=== PATIENT | female | born 2000 | race Two or more races ===

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

== ENCOUNTER 2018-01-03 12:39 | Emergency (ER) | payer SELFPAY ==
[~2018-01-03] VITALS: Ht 157.5 cm; Wt 77.1 kg
[~2018-01-03 12:39] MED LIST changes: +METRONIDAZOLE500 MG ORAL
--- NOTE | 2018-01-03 13:15 | Emergency Room Report ---
History of Present Illness General Chief Complaint: Sore Throat Source: Patient Present Illness HPI Patient is a 17-year-old female with no significant past medical history GERD complaining of 2 days of sore throats, fevers/chills. The pain 10 out of 10, difficulty swallowing, denies SOB, denies cough, denies rhinorrhea, denies wheezing. Vision has taken ibuprofen with some improvement for pain. No sick contacts Allergies: Coded Allergies: No Known Allergies (Unverified , 07/12/15) Patient History Past Medical History: see triage record Past Surgical History: none Pertinent Family History: none Last Menstrual Period: 10/31/17 Now: No Immunizations: UTD Reviewed Nursing Documentation: PMH: Agreed; PSxH: Agreed Nursing Documentation-PMH Past Medical History: No Stated History Review of Systems All Other Systems: negative except mentioned in HPI Physical Exam Vital Signs Date Time Temp Pulse Resp B/P (MAP) Pulse Ox O2 Delivery O2 Flow Rate FiO2 01/03/18 12:56 98.4 87 16 131/75 99 Room Air 98.4 Sp02 EP Interpretation: reviewed, normal General Appearance: normal inspection, well appearing, no apparent distress Head: normocephalic, atraumatic Eyes: bilateral eye normal inspection, bilateral eye PERRL ENT: hearing grossly normal, uvula midline, tonsillar swelling - bilateral 2+, tonsillar exudate - bilateral exudate Neck: supple, other - anterior cervical lymphadenopathy Respiratory: normal inspection, chest non-tender, lungs clear, normal breath sounds, no rhonchi, no respiratory distress, no retraction, no accessory muscle use Cardiovascular #1: normal inspection, normal peripheral pulses, regular rate, rhythm, no edema, no murmur Gastrointestinal: normal inspection, non tender, soft Rectal: deferred Genitourinary: deferred Musculoskeletal: normal inspection, back normal Neurologic: normal inspection, alert, oriented x3 Psychiatric: normal inspection, judgement/insight normal Lymphatic: other, adenopathy - Cervical lymphadenopathy anterior Medical Decision Making PA Attestation fall diagnosis, treatment plans, orders were reviewed and discussed with my supervising physician Dr. Ngo Diagnostic Impression: Primary Impression: Strep pharyngitis Additional Impression: Sore throat ER Course Patient is a 17-year-old female with no significant past medical history GERD complaining of 2 days of sore throats, fevers/chills. The pain 10 out of 10, difficulty swallowing, denies SOB, denies cough, denies rhinorrhea, denies wheezing. Vision has taken ibuprofen with some improvement for pain. No sick contacts Ddx considered but are not limited to strep pharyngitis, URI Vital signs: are WNL, pt. is afebrile H&PE are most consistent with strep pharyngitis ORDERS: Augmentin 875/125 mg, Motrin 600 mg ED INTERVENTIONS: None required at this time. DISCHARGE: At this time pt. is stable for d/c to home. Will provide printed patient care instructions, and any necessary prescriptions. Care plan and follow up instructions have been discussed with the patient prior to discharge. avoid spicy, acidic, greasy food. Patient has direct Last Vital Signs Date Time Temp Pulse Resp B/P (MAP) Pulse Ox O2 Delivery O2 Flow Rate FiO2 01/03/18 12:56 98.4 87 16 131/75 99 Room Air 98.4 Disposition: HOME, SELF-CARE Condition: Stable Scripts Ibuprofen* (MOTRIN*) 400 Mg Tablet 400 MG ORAL FOUR TIMES A DAY, #30 TAB 0 Refills Prov: Sabrina Rondon P.AMari 01/03/18 Amoxicillin/Potassium Clav 875-125* (AUGMENTIN 875-125 TABLET*) 1 Each Tablet 1 TAB ORAL TWICE A DAY for 7 Days, #14 TAB Prov: Sabrina Rondon.AMari 01/03/18 Patient Instructions: Sore Throat, Strep Throat Additional Instructions: take meds as directed. avoid spicy/acidic food. follow up with pcp. ED precautions Sabrina Rondon Jan 03, 2018 13:15
[2018-01-03] MEDS ORDERED: IBUPROFEN400 MG ORAL (13:16)
[2018-01-03] MEDS ORDERED: AUGMENTIN 875-1 EAC1 ORAL (13:16)
[2018-01-03 13:20] VITALS: BP 131/75
== END 2018-01-03 13:28 | disposition home or self-care (01) ==
LOC: EMR 13:20
DX: J02.0 Streptococcal pharyngitis (principal); K21.9 Gastro-esophageal reflux disease without esophagitis
CPT/HCPCS: 99284

== ENCOUNTER 2018-11-08 13:27 | Emergency (ER) | payer SELFPAY ==
[~2018-11-08] VITALS: Ht 157.5 cm; Wt 79.8 kg
[~2018-11-08 13:27] MED LIST changes: +AUGMENTIN 875-1 EAC1 ORAL; +IBUPROFEN400 MG ORAL
[2018-11-08] MEDS ORDERED: NKM (13:37)
[2018-11-08 13:52] VITALS: BP 128/77
--- NOTE | 2018-11-08 13:53 | NUR ---
ED Nurse Note:pt. came with rash on her thighs chest and knees, A/Ox4 ambulatory no fever reported
--- NOTE | 2018-11-08 14:25 | Emergency Room Report ---
History of Present Illness General Chief Complaint: Skin Rash/Abscess Source: Patient Present Illness HPI 18 -year-old female presents to the emergency department complaining of itchy rash with acute onset 4 days ago primarily in the bilateral inner thighs she also has some across the anterior top of the chest and along the posterior elbows. Denies pain. reports recent URI last week. Pt. denies fevers, chills or swollen tender lymph nodes. Denies lesions/rashes elsewhere on the body. Denies new medications or body washes or creams. Denies swelling of the lips, tongue , throat or airway. Denies wheezing, or shortness of breath. Denies recent travel , or ill contacts. denies blisters, oral lesions, or sloughing of the skin. Allergies: Coded Allergies: No Known Allergies (Unverified , 11/08/18) Patient History Past Medical History: see triage record Past Surgical History: none Pertinent Family History: none Last Menstrual Period: 10/06/18 Now: No Reviewed Nursing Documentation: PMH: Agreed; PSxH: Agreed Nursing Documentation-PMH Past Medical History: No Stated History Review of Systems All Other Systems: negative except mentioned in HPI Physical Exam Vital Signs Date Time Temp Pulse Resp B/P (MAP) Pulse Ox O2 Delivery O2 Flow Rate FiO2 11/08/18 13:32 98.8 73 16 98 Room Air 11/08/18 13:52 128/77 Sp02 EP Interpretation: reviewed, normal General Appearance: no apparent distress, alert, GCS 15, non-toxic Head: normocephalic, atraumatic Eyes: bilateral eye normal inspection, bilateral eye PERRL ENT: hearing grossly normal, normal voice, other - no swelling of the lips or tongue, no stridor Neck: full range of motion Respiratory: lungs clear, normal breath sounds, no respiratory distress, no accessory muscle use, no wheezing, speaking full sentences Cardiovascular #1: regular rate, rhythm Gastrointestinal: non tender, soft, other - no rash on abdomen Genitourinary: normal inspection Musculoskeletal: gait/station normal, normal range of motion, non-tender Neurologic: alert, oriented x3, responsive, motor strength/tone normal, sensory intact, normal gait, speech normal, grossly normal Psychiatric: judgement/insight normal Skin: normal color, warm/dry, well hydrated, rash - urticarial type rash on the inner thighs bilateraly, the elbows, and forearms and the top of the chest anteriorly, no rash on abdomen, back , LE, hands, face or neck. no blisters or vessicles. Lymphatic: no adenopathy Medical Decision Making PA Attestation Dr. Dominique is my supervising Physician whom patient management has been discussed with. Diagnostic Impression: Primary Impression: Rash and other nonspecific skin eruption ER Course 18 -year-old female presents to the emergency department complaining of itchy rash with acute onset 4 days ago primarily in the bilateral inner thighs she also has some across the anterior top of the chest and along the posterior elbows. Denies pain. reports recent URI last week. Pt. denies fevers, chills or swollen tender lymph nodes. Denies lesions/rashes elsewhere on the body. Denies new medications or body washes or creams. Denies swelling of the lips, tongue , throat or airway. Denies wheezing, or shortness of breath. Denies recent travel , or ill contacts. denies blisters, oral lesions, or sloughing of the skin. Ddx considered but are not limited to cellulitis, scabies, shingles, varicella, dermatitis, urticaria, eczema, tinea, viral exanthem, SJS Vital signs: are WNL, pt. is afebrile H&PE are most consistent with allergic contact dermatitis type rash , no evidence of secondary infection, Impending airway compromise or acute anaphylaxis. ORDERS: none required at this time, the diagnosis is clinical ED INTERVENTIONS: None required at this time. DISCHARGE: At this time pt. is stable for d/c to home. Will provide printed patient care instructions, and any necessary prescriptions. Care plan and follow up instructions have been discussed with the patient prior to discharge. Last Vital Signs Date Time Temp Pulse Resp B/P (MAP) Pulse Ox O2 Delivery O2 Flow Rate FiO2 11/08/18 13:52 98.8 65 16 128/77 98 Room Air Disposition: HOME, SELF-CARE Condition: Stable Departure Forms: Return to Work Return to Work Date: November 11, 2018 Work Restrictions: None Other Restrictions: May return Sooner if Symptoms have resolved. Return to Full Activity: November 11, 2018 Patient Instructions: Rash Additional Instructions: Take medications as directed. Follow up with a Primary Care Provider in 3-5 days, even if your symptoms have resolved. --Please review list of primary care clinics, if you do not already have a primary care provider Return sooner to ED if new symptoms occur, or current symptoms become worse. Do not drink alcohol, drive, or operate heavy machinery while taking hydroxyzine as this may cause drowsiness. - Please note that this Emergency Department Report was dictated using [employer] superintendent technology software, occasionally this can lead to erroneous entry secondary to interpretation by the dictation equipment. Myesha Correa November 08, 2018 14:24
[2018-11-08] MEDS ORDERED: VISTARIL50 MG ORAL (14:26)
[2018-11-08] MEDS ORDERED: ANTI-ITCH28 G1 TP (14:26)
[2018-11-08 14:48] VITALS: BP 128/77
--- NOTE | 2018-11-08 14:49 | NUR ---
ER DISCHARGE NOTE: Patient is cleared to be discharged per ERMD, pt is aox4, on room air, with stable vital signs. pt was given dc and prescription instructions, pt was able to verbalize understanding, pt is able to ambulate with steady gait. pt took all belongings.
== END 2018-11-08 14:30 | disposition home or self-care (01) ==
LOC: EMR 14:18
DX: R21 Rash and other nonspecific skin eruption (principal)
CPT/HCPCS: 99282

== ENCOUNTER 2019-01-28 22:45 | Emergency (ER) | payer SELFPAY ==
[~2019-01-28] VITALS: Ht 157.5 cm; Wt 79.8 kg
[~2019-01-28 22:45] MED LIST changes: +ANTI-ITCH28 G1 TP; +NKM; +VISTARIL50 MG ORAL
[2019-01-28] MEDS ORDERED: NKM (22:51)
--- NOTE | 2019-01-28 23:00 | NUR ---
ED Nurse Note: PT WALKED IN C/O HEADACHE X 3 DAYS AND PRESSURE LIKE PAIN ON NECK, PT DENIES ANY RECENT INJURIES, DENIES N/V AT THIS TIME, DENIES VISION CHANGES, VSS, WILL CONT MONITOR. AMBULATORY W/ STEADY GAIT.
[2019-01-28] MEDS ORDERED: Metoclopramide 10mg/2ml Inj IVP ONE (23:15)
[2019-01-28] MEDS ORDERED: Ketorolac 30mg Inj IV ONE (23:15)
--- NOTE | 2019-01-28 23:15 | Emergency Room Report ---
History of Present Illness General Chief Complaint: Headache Source: Patient Present Illness HPI HPI: 1-year-old female with no second medical history is benign for evaluation of headache. Is been present for several days. Describes it as a right-sided intermittent throbbing and aching headache particularly at the base of the skull. She states she has had tension headaches in the past and sometimes has headaches around her period which she started 3 days ago. She denies any vision changes, blurred vision, vertiginous symptoms, photophobia, nausea, vomiting, fevers, neck pain or stiffness or rash. Currently, her headache is 4/ 10. She states it is been constant for several days however it undulates in intensity. She tried ibuprofen one time however it did not work several days ago and has not tried any other medication since. She states she is staying well-hydrated. PMH: Denies PSH: Denies Allergies: Denies Social Hx: Social alcohol use, denies tobacco or drug use Allergies: Coded Allergies: No Known Allergies (Unverified , 11/08/18) Patient History Last Menstrual Period: 01/23/19 Now: No : 0 Para: 0 Nursing Documentation-PMH Past Medical History: No Stated History Review of Systems All Other Systems: negative except mentioned in HPI Physical Exam Vital Signs Date Time Temp Pulse Resp B/P (MAP) Pulse Ox O2 Delivery O2 Flow Rate FiO2 01/28/19 22:48 98.2 77 18 146/86 (106) 96 Room Air General: Awake and alert, no acute distress HEENT: NC/AT. EOMI. PERRLA. No nystagmus. Moist mucous membranes. Cardiovascular: RRR. S1 and S2 normal. No murmur appreciated Resp: Normal work of breathing. No cough, wheezing or crackles appreciated Abdomen: Abdomen is soft, nondistended. Nontender Skin: Intact. No abrasions, laceration or rash over the exposed skin MSK: Normal tone and bulk. Moving all extremities. No obvious deformity. Neuro: Awake and alert. Mentating appropriately. Visual [place] are full. No nystagmus. PERRLA. She will expressions are symmetrical. Strength is full in the upper and lower extremities. Sensation is intact in the upper extremities over all dermatomes. Ambulating with a steady gait in the emergency department. No ataxia. Back/Spine: Mild tenderness palpation over the base of the skull particularly over the trapezius on the right side. No midline tenderness in the cervical, thoracic or lumbosacral spine. Medical Decision Making Diagnostic Impression: Primary Impression: Headache ER Course 18-year-old female presents for evaluation of several days headache without severe features. This may be tension headache, generalized headache, possible migraine. May be related to menses. I have very little suspicion for meningitis/other infectious symptoms or for a mass/bleed. We will treat symptomatically with IV fluids, Reglan, Toradol and reevaluate. Neurologic exam is reassuring. Reevaluation Time: 00:01 Last Vital Signs Date Time Temp Pulse Resp B/P (MAP) Pulse Ox O2 Delivery O2 Flow Rate FiO2 01/28/19 22:48 98.2 77 18 146/86 (106) 96 Room Air Status: improved Reevaluation Impression Declined IV fluids stating that the IV was painful. Headache is now resolved. We discussed red flag symptoms and reasons to return to the emergency department patient and family who are now present at bedside. She is electing to be discharged home at this time and feels well. We will give the name of some primary care clinics in the area for her to follow-up. Discussed reasons to return to the emergency department. She understands and agrees with this treatment plan will be discharged home. Please note that this report is being documented using [employer] technology. This can lead to erroneous entry secondary to incorrect interpretation by the dictating instrument. Disposition: HOME, SELF-CARE Condition: Improved Jeff Crane MD Jan 28, 2019 23:15
[2019-01-28 23:42] VITALS: BP 135/75
--- NOTE | 2019-01-28 23:45 | NUR ---
ED Nurse Note: PT REFUSED IV ACCESS, ERMD NOTIFIED.
[2019-01-29 00:25] VITALS: BP 126/73
--- NOTE | 2019-01-29 00:26 | NUR ---
ED Nurse Note: PT CLEARED TO BE D/C PER ERMD, PT DISCHARGE AND AFTERCARE INSTRUCTION PROVIDED, PT ADVISED TO FOLLOW UP WITH PCP OR RETURN TO ED IF CHANGES IN CONDITION, EDUCATION DONE VIA DISCUSSION AND HANDOUT, PT VSS, AMBULATORY W/ STEADY GAIT, LEFT W/ ALL BELONGINGS.
== END 2019-01-29 00:25 | disposition home or self-care (01) ==
LOC: EMR 01-29 00:20
DX: R51 Headache (principal)
CPT/HCPCS: 96361; 96374; 96375; 99284; J1885; J2765

== ENCOUNTER 2019-02-01 17:06 | Emergency (ER) | payer SELFPAY ==
[~2019-02-01] VITALS: Ht 157.5 cm; Wt 79.8 kg
[2019-02-01 17:11] VITALS: BP 172/92
--- NOTE | 2019-02-01 17:20 | NUR ---
ED Nurse Note: Patient walked into ED c/o heart racing started around 1600 at work. patient is alert awake x4 ambulatory breathing unlabored and even, patient is interactive with her friend at bedside. HR 98 upon triage.
--- NOTE | 2019-02-01 17:37 | NUR ---
ED Nurse Note: UA sent to lab
[2019-02-01] MEDS ORDERED: LORazepam 0.5mg tab ORAL ONE (17:45)
[2019-02-01 17:53] LABS: APPEARANCE,URINE CLEAR; BILIRUBIN, URINE NEGATIVE (NEGATIVE); COLOR,URINE PALE YELLOW; GLUCOSE, URINE (UA) NEGATIVE (NEGATIVE); KETONES,URINE 2+ (NEGATIVE); LEUKOCYTE ESTERASE ,URINE 3+ (NEGATIVE); NITRITE,URINE NEGATIVE (NEGATIVE); PH,URINE 5 (4.5-8.0); PROTEIN,URINE NEGATIVE (NEGATIVE); UROBILINOGEN,URINE NORMAL MG/DL (0.0-1.0)
--- NOTE | 2019-02-01 18:49 | Emergency Room Report ---
History of Present Illness General Chief Complaint: Palpitations Source: Patient Present Illness HPI 18-year-old female presents to the emergency department complaining of feeling as though her heart was racing starting at 4 PM while at work. Patient reports having one prior episode in the past she denies chest pain, shortness of breath or difficulty breathing. Patient reports history of anxiety but states she is not medically managed and is not prescribed any specific medication for her symptoms she reports generalized anxiety. Patient denies increase in stress she denies nausea or vomiting. She does report that she has had a persistent headache with neck muscle spasm and upper back muscle spasm x3 days she states she gets tension headaches frequently patient denies sudden onset of her headache she denies trauma or fall. Denies fevers or chills. Patient denies photophobia. She denies suspicion of she does report urinary frequency with urgency she denies dysuria she reports some hematuria x2 days. She denies abdominal pain, tenderness or low back pain. Denies numbness tingling or loss of sensation or gross motor movements of the extremities, incontinence of bowel or bladder. Denies CP, Palpitations, LOC, AMS, dizziness, Changes in Vision, weakness or a sudden severe headache. Denies personal or familial cardiac hx. Denies significant changes in weight or hx of HTN. Pt. Denies smoking hx or recent travel. Allergies: Coded Allergies: No Known Allergies (Unverified , 11/08/18) Patient History Past Medical History: see triage record Past Surgical History: none Pertinent Family History: none Last Menstrual Period: 01/2019 Now: No Reviewed Nursing Documentation: PMH: Agreed; PSxH: Agreed Nursing Documentation-PMH Past Medical History: No History, Except For Review of Systems All Other Systems: negative except mentioned in HPI Physical Exam Vital Signs Date Time Temp Pulse Resp B/P (MAP) Pulse Ox O2 Delivery O2 Flow Rate FiO2 02/01/19 17:11 99.3 98 20 172/92 98 Room Air Sp02 EP Interpretation: reviewed, normal General Appearance: well appearing, no apparent distress, alert, GCS 15, non- toxic Head: normocephalic, atraumatic Eyes: bilateral eye normal inspection, bilateral eye PERRL ENT: hearing grossly normal, normal voice Neck: full range of motion, no meningismus, no bony tend, tender lateral - left > Right, muscular, no midline spinous process ttp. Respiratory: chest non-tender, lungs clear, normal breath sounds, no accessory muscle use, no wheezing, speaking full sentences Cardiovascular #1: regular rate, rhythm, no edema, normal capillary refill Gastrointestinal: normal bowel sounds, non tender, soft, non-distended Genitourinary: normal inspection, no CVA tenderness Musculoskeletal: gait/station normal, normal range of motion, non-tender Neurologic: alert, oriented x3, responsive, motor strength/tone normal, sensory intact, normal gait, speech normal, grossly normal Psychiatric: judgement/insight normal, no suicidal/homicidal ideation, no delusions, anxious - mildly anxious, pt. nervous to try medications. Skin: no rash Lymphatic: no adenopathy Medical Decision Making PA Attestation Dr. Pagan is my supervising Physician whom patient management has been discussed with. Diagnostic Impression: Primary Impression: Palpitations Additional Impressions: UTI (urinary tract infection) Qualified Codes: N30.01 - Acute cystitis with hematuria Neck muscle spasm ER Course 18-year-old female presents to the emergency department complaining of feeling as though her heart was racing starting at 4 PM while at work. Patient reports having one prior episode in the past she denies chest pain, shortness of breath or difficulty breathing. Patient reports history of anxiety but states she is not medically managed and is not prescribed any specific medication for her symptoms she reports generalized anxiety. Patient denies increase in stress she denies nausea or vomiting. She does report that she has had a persistent headache with neck muscle spasm and upper back muscle spasm x3 days she states she gets tension headaches frequently patient denies sudden onset of her headache she denies trauma or fall. Denies fevers or chills. Patient denies photophobia. She denies suspicion of she does report urinary frequency with urgency she denies dysuria she reports some hematuria x2 days. She denies abdominal pain, tenderness or low back pain. Denies numbness tingling or loss of sensation or gross motor movements of the extremities, incontinence of bowel or bladder. Denies CP, Palpitations, LOC, AMS, dizziness, Changes in Vision, weakness or a sudden severe headache. Denies personal or familial cardiac hx. Denies significant changes in weight or hx of HTN. Pt. Denies smoking hx or recent travel. Ddx considered but are not limited to [facility], arrhythmia, hypokalemia, anxiety reaction. Vital signs: are WNL, pt. is afebrile-- initial VS pt. had elevated BP reading. Repeat VS--- bp has normalized. H&PE are most consistent with anxiety reaction pt. currently non-toxic in appearance normal VS, NAD otherwise will r/o UTI/ and do EKG to r/o arrhythmia. ORDERS: - EK NSR, no acute ST changes. -UA: few bacteria, few rbc's and elevated leuks. will rx abx - Urine Hcg: negative ED INTERVENTIONS: -Ativan 0.5mg -- upon re-assessment pt. reports her symptoms have improved significantly. -I do not identify an emergent condition at this time. With current presentation , pt. is stable for close outpatient follow up and conservative treatment. D/ w pt. to return promptly to ED with worsening or new symptoms.- Pt. verbalizes' understanding and agreement with proposed treatment plan. DISCHARGE: At this time pt. is stable for d/c to home. Will provide printed patient care instructions, and any necessary prescriptions. Care plan and follow up instructions have been discussed with the patient prior to discharge. Labs Test 02/01/19 17:33 Urine Color Pale yellow Urine Appearance Clear Urine pH 5 (4.5-8.0) Urine Specific [place] 1.005 (1.005-1.035) Urine Protein Negative (NEGATIVE) Urine Glucose (UA) Negative (NEGATIVE) Urine Ketones 2+ (NEGATIVE) Urine Blood 2+ (NEGATIVE) Urine Nitrite Negative (NEGATIVE) Urine Bilirubin Negative (NEGATIVE) Urine Urobilinogen Normal MG/DL (0.0-1.0) Urine Leukocyte Esterase 3+ (NEGATIVE) Urine RBC 0-2 /HPF (0 - 2) Urine WBC 2-4 /HPF (0 - 2) Urine Squamous Epithelial Cells Few /LPF (NONE/OCC) Urine Bacteria Few /HPF (NONE) Urine HCG, Qualitative Negative (NEGATIVE) EKG Diagnostic Results EP Interpretation: Dr. Pagan Rate: normal - 77 Rhythm: NSR ST Segments: no acute changes ASA given to the pt in ED: No PA Scribe Text This Interpretation was scribed by ILAN Correa. Last Vital Signs Date Time Temp Pulse Resp B/P (MAP) Pulse Ox O2 Delivery O2 Flow Rate FiO2 02/01/19 17:11 99.3 98 20 172/92 (118) 98 Room Air Disposition: HOME, SELF-CARE Condition: Stable Scripts Lorazepam* (ATIVAN*) 1 Mg Tablet 1 MG ORAL BID for anxiety, #6 TAB Prov: Myesha Correa 02/01/19 Methocarbamol* (ROBAXIN-750*) 750 Mg Tablet 750 MG PO QID, #28 TAB 0 Refills Prov: Myesha Correa 02/01/19 Nitrofurantoin Monohyd/M-Cryst* (MACROBID 100 MG*) 100 Mg Capsule 100 MG ORAL EVERY 12 HOURS for 5 Days, #10 CAP Prov: Myesha Correa 02/01/19 Departure Forms: Return to Work Return to Work Date: Feb 03, 2019 Work Restrictions: None Other Restrictions: May return Sooner if Symptoms have resolved. Return to Full Activity: Feb 03, 2019 Patient Instructions: Muscle Cramps and Spasms, [id number] Additional Instructions: Take medications as directed. Follow up with a Primary Care Provider in 3-5 days, even if your symptoms have resolved. --Please review list of primary care clinics, if you do not already have a primary care provider Return sooner to ED if new symptoms occur, or current symptoms become worse. Do not drink alcohol, drive, or operate heavy machinery while taking [ ] as this may cause drowsiness. - Please note that this Emergency Department Report was dictated using [employer] technology software, occasionally this can lead to erroneous entry secondary to interpretation by the dictation equipment. Myesha Correa Feb 01, 2019 18:49
[2019-02-01 19:48] VITALS: BP 134/81
[2019-02-01] MEDS ORDERED: ATIVAN1 MG ORAL (20:02)
[2019-02-01] MEDS ORDERED: NITROFURANTOIN100 M2 ORAL (20:02)
[2019-02-01] MEDS ORDERED: ROBAXIN-750750 MG PO (20:02)
[2019-02-01 20:16] VITALS: BP 134/81
--- NOTE | 2019-02-01 20:20 | NUR ---
ER DISCHARGE NOTE: Patient is cleared to be discharged per YING HOPPER, pt is aox4, on room air, with stable vital signs. pt was given dc and prescription instructions, pt was able to verbalize understanding, pt id band removed without complications. pt is able to ambulate with steady gait. pt took all belongings.
== END 2019-02-01 20:20 | disposition home or self-care (01) ==
LOC: EMR 18:50
DX: R00.2 Palpitations (principal); N30.01 Acute cystitis with hematuria; M62.838 Other muscle spasm; F41.9 Anxiety disorder, unspecified
CPT/HCPCS: 81003; 81025; 93005; 99283

== ENCOUNTER 2019-03-03 19:57 | Emergency (ER) | payer SELFPAY ==
[~2019-03-03] VITALS: Ht 157.5 cm; Wt 79.8 kg
[~2019-03-03 19:57] MED LIST changes: +ATIVAN1 MG ORAL; +NITROFURANTOIN100 M2 ORAL; +ROBAXIN-750750 MG PO
--- NOTE | 2019-03-03 20:15 | NUR ---
ED Nurse Note: Recieved pt on gurney from home, awake, alert and oriented x 4, pt here with c/o burning during urination and sorethroat, pt denies any other dfiscomforts or complaints.
--- NOTE | 2019-03-03 20:24 | Emergency Room Report ---
History of Present Illness General Chief Complaint: Female Urogenital Problems Source: Patient Present Illness HPI 18-year-old female complaining of urinary urgency and dysuria x2 days. Denies fever, vomiting, blood in urine, abdominal pain, back pain. Also complaining of sore throat x2 weeks. Also complaining of yellow-green discharge from right eye x3 days. Denies vision change or eye pain. No relieving/ aggravating factors. Allergies: Coded Allergies: No Known Allergies (Unverified , 11/08/18) Patient History Past Medical History: none Past Surgical History: none Social History: Denies: smoking, alcohol use, drug use Last Menstrual Period: 02/17/19 Now: No Nursing Documentation-[facility] Past Medical History: No Stated History Physical Exam Vital Signs Date Time Temp Pulse Resp B/P (MAP) Pulse Ox O2 Delivery O2 Flow Rate FiO2 03/03/19 20:04 98.4 75 18 126/74 (91) 100 Room Air Sp02 EP Interpretation: reviewed, normal Eyes: right eye other - small amount of crusty yellow discharge on medial canthus; left eye normal inspection; bilateral eye PERRL ENT: hearing grossly normal, normal pharynx, no angioedema, normal voice Respiratory: chest non-tender, lungs clear, normal breath sounds, speaking full sentences Cardiovascular #1: regular rate, rhythm, no edema Gastrointestinal: normal bowel sounds, non tender, soft, non-distended, no guarding, no rebound Genitourinary: normal inspection, no CVA tenderness Skin: no rash, normal inspection Medical Decision Making PA Attestation This patient was seen under the direct supervision of Dr. Pagan who directed all aspects of care and diagnostic interpretation. ER Course ED course HPI: 18-year-old female complaining of urinary urgency and dysuria x2 days. Denies fever, vomiting, blood in urine, abdominal pain, back pain. Also complaining of sore throat x2 weeks. Also complaining of yellow-green discharge from right eye x3 days. Denies vision change or eye pain. No relieving/ aggravating factors. Physical exam of oropharynx shows no erythema and no exudates, do not suspect bacterial pharyngitis. HPI & PE consistent with: UTI, Right conjunctivitis Orders/ Interventions: UA shows 1+ blood, 2+ leukocyte esterase, 5-10 WBC, few bacteria. Consistent with UTI. Small amount of yellow discharge on right eye, consistent with bacterial conjunctivitis. Disposition: At this time pt. is stable for d/c to home. Hand hygiene discussed. Wipe away eye discharge with clean tissue. Continue with ophthal drops until improved and then for two more days. Educated on UTI prevention tips: wipe from front to back, urinate after intercourse. Advised to increase fluid intake & rest. avoid holding urine in. Followup with PCP in 2 days or return to ED if worsening symptoms, new symptoms , or sudden change in condition. Will provide printed patient care instructions, and any necessary prescriptions. Care plan and follow up instructions have been discussed with the patient prior to discharge. Please note that this Emergency Department Report was dictated using [employer] technology software, occasionally this can lead to erroneous entry secondary to interpretation by the dictation equipment. Laboratory Tests Test 03/03/19 20:20 Urine Color Pale yellow Urine Appearance Clear Urine pH 8 (4.5-8.0) Urine Specific [place] 1.010 (1.005-1.035) Urine Protein Negative (NEGATIVE) Urine Glucose (UA) Negative (NEGATIVE) Urine Ketones Negative (NEGATIVE) Urine Blood 1+ (NEGATIVE) H Urine Nitrite Negative (NEGATIVE) Urine Bilirubin Negative (NEGATIVE) Urine Urobilinogen Normal MG/DL (0.0-1.0) Urine Leukocyte Esterase 2+ (NEGATIVE) H Urine RBC 0-2 /HPF (0 - 2) Urine WBC 5-10 /HPF (0 - 2) H Urine Squamous Epithelial Cells Few /LPF (NONE/OCC) Urine Bacteria Few /HPF (NONE) Last Vital Signs Date Time Temp Pulse Resp B/P (MAP) Pulse Ox O2 Delivery O2 Flow Rate FiO2 03/03/19 20:04 98.4 75 18 126/74 (91) 100 Room Air Status: unchanged Disposition: HOME, SELF-CARE Condition: Stable Scripts Polymyxin/Trimethoprim (Polytrim Eye Drops) 10 Ml Drops 1 DROP RIGHT EYE Q6HR, #10 ML Prov: Freya Brice 03/03/19 Cephalexin* (CEPHALEXIN*) 500 Mg Tablet 500 MG ORAL EVERY 8 HOURS for 7 Days, #21 CAP Prov: Freya Brice 03/03/19 Patient Instructions: Bacterial Conjunctivitis, [id number], Urinary Tract Infection Additional Instructions: Take prescription as prescribed. Follow-up with PCP return to ER if worsening symptoms, new symptoms or sudden change in condition. Freya Brice Mar 03, 2019 20:24
[2019-03-03 20:36] LABS: APPEARANCE,URINE CLEAR; BILIRUBIN, URINE NEGATIVE (NEGATIVE); COLOR,URINE PALE YELLOW; GLUCOSE, URINE (UA) NEGATIVE (NEGATIVE); KETONES,URINE NEGATIVE (NEGATIVE); LEUKOCYTE ESTERASE ,URINE 2+ (NEGATIVE); NITRITE,URINE NEGATIVE (NEGATIVE); PH,URINE 8 (4.5-8.0); PROTEIN,URINE NEGATIVE (NEGATIVE); UROBILINOGEN,URINE NORMAL MG/DL (0.0-1.0)
[2019-03-03] MEDS ORDERED: CEPHALEXIN500 M1 ORAL (20:42)
[2019-03-03] MEDS ORDERED: POLYTRIM OP SOL10 ML RIGHT EYE (20:43)
[2019-03-03 21:15] VITALS: BP 121/76
--- NOTE | 2019-03-03 21:20 | NUR ---
ER DISCHARGE NOTE: Patient is cleared to be discharged per ERMD, pt is aox4, on room air, with stable vital signs. pt was given dc and prescription instructions, pt was able to verbalize understanding, pt id band removed without complications. pt is able to ambulate with steady gait. pt took all belongings.
[2019-03-03 21:21] VITALS: BP 126/74
== END 2019-03-03 21:20 | disposition home or self-care (01) ==
LOC: EMR 20:28
DX: N39.0 Urinary tract infection, site not specified (principal); H10.9 Unspecified conjunctivitis
CPT/HCPCS: 81003; 99282